=== PATIENT | female | born 1945 | race Caucasian/White ===

== ENCOUNTER → 2018-03-09 | Outpatient (CLI) | payer MEDICARE ==
[~2018-03-09] MED LIST: ACET325 PO; ACET500 PO; ALBU3IS INH; ALBU90I INH; ALBU90OI INH; ALBU90OI61 INH; ALEN70; ALEN70 PO; ALL DAY ALLERGY10 MG PO; AMLO5 PO; ANTIBIOTIC; ASCO500 PO; ASMANEX; AZIT250 PO; AZIT500 PO; B complex; BENADRYL25 MG; BENZ100A PO; CALCA500CH; CALCA500CH PO; CALCAVITD PO; CALCIUM PLUS D; CALCIUM PO; CALCNI; CALCNI PO; CARV25 PO; CELE200; CETI10 PO; CETI5 PO; CHOL10002 PO; CIPR500 PO; CITA20 PO; CLOBET30L TOP; CLON.1 MT; CLON.5; CYAN1000 PO; D3 + K2 Dots 11 EACH PO; DELTASONE20 MG PO; DILT180 PO; DIPH50 PO; DOXA1 PO; DULERA 100 MCG/13 GM INH; EDARBI40 MG PO; ELIQUIS5 MG PO; ENAL20 PO; ESTR.75; Effexor Xr150 MG PO; FENO145 PO; FERR325 PO; FIBER GUMMIES1 EACH PO; FIBER PO; FLONASE ALLERG9.9 ML INH; FLORADIL; FLUT.05NI INH; FOLI1 PO; FORM12IH; FORM12IH IH; FORTICAL; FURO40 MT; Ferrous Sulfat325 M2 PO; Flonase 0.05% N16 GM; HYDACE10B MT; HYDACE5 PO; HYDCHL12.5 PO; HYDHCL25 PO; HYDMOR2 PO; HYDR10 PO; HYDURE500 PO; HYOS.125 SL; Hydralazine HCl10 MG MT; INDA2.5; IRON150C PO; ISOMON30 PO; KRILL OIL 3001 EACH; KRILL OIL 3001 EACH PO; KRILL OIL500 MG PO; LEVSOD50 PO; LORA.5 PO; MEGARED OMEGA-1 EAC1 PO; MELA3; META800 PO; METCAR750; METO10; METO5A; METR500 PO; MOME220I IH; MOMENI; MOMETASONE; MONDOXYNE NL100 MG PO; MONT10T; MONT10T PO; NAPR550 PO; NYST100SU SS; OSEL75CA; OXYACE5T; OXYC10ER PO; OXYC10TA19 PO; PANT20; PANT40 PO; PHILLIPS' COLO1 EACH PO; POTA10T; POTA10T MT; POTA10T PO; POTCHL10ER PO; PRED20 PO; PROBIOTIC COMP1 EACH PO; PROBIOTIC1 EAC1 PO; QVAR7.3 G1 IH; QVAR7.3 G1 INH; SIMV20 PO; SPIR50; STOOL SOFTENER1 EAC1 PO; STOOL SOFTENER50 MG PO; SUCR1 PO; Stool Softener100 MG PO; TIZANIDINE HCL4 MG PO; TRAN4; ULTRA-LIGHT RO1 EACH MC; VENL150ER PO; VENL75; VENL75ER; VITB100 PO; Vitamin D2000 UNIT PO; WARF1; WARF1 PO; WARF2 PO; WARF2.5; WARF2.5 PO; WARF5; ZOLP5 PO; Zanaflex4 M1 MT; Zanaflex4 M1 PO; Zofran Odt4 MG SL; [UNRECOGNIZED DRUG - OTHER]; [UNRECOGNIZED DRUG - OTHER] PO; [UNRECOGNIZED DRUG - REMARK]; [UNRECOGNIZED DRUG - REMARK]; [UNRECOGNIZED DRUG - REMARK]; albuteral; citalopram; enalapril
[2018-03-09 16:08] LABS: BASOPHILS PERCENT AUTO 1 % (0-2); EOSINOPHILS ABSOLUTE AUTO 0.04 K/mm3 (0.00-0.68); EOSINOPHILS PERCENT AUTO 0 % (0-6); Hematocrit 39.8 % (33.0-51.0); Hemoglobin 13.8 g/dL (11.5-16.0); IMMATURE GRAN ABSOLUTE AUTO 0.03 K/mm3 (0.00-0.10); IMMATURE GRAN PERCENT AUTO 0 % (0-1); LYMPHOCYTES ABSOLUTE AUTO 2.55 K/mm3 (0.84-5.20); LYMPHOCYTES PERCENT AUTO 24 % (21-46); MONOCYTES PERCENT AUTO 7 % (4-13); Mean Corpuscular HGB 37.3 pg (26.0-34.0); Mean Corpuscular HGB Conc 34.7 g/dL (31.5-36.5); Mean Corpuscular Volume 108 fL (80-100); Mean Platelet Volume 8.9 fL (9.1-12.4); NEUTROPHILS PERCENT AUTO 67 % (41-73); Platelet Count 456 K/mm3 (150-400); RDW Standard Deviation 55.8 fL (35.1-46.3); White Blood Cell Count 10.82 K/mm3 (4.00-11.30)
[2018-03-09 16:21] LABS: Albumin, Blood 4.3 g/dL (3.4-5.0); Albumin/Globulin Ratio 1.1 (0.8-1.8); Bilirubin, Total 0.5 mg/dL (0.1-1.0); Bun/Creatinine Ratio 14.4 (12.0-20.0); Calcium, Blood 9.7 mg/dL (8.5-10.1); Creatinine, Blood 1.32 mg/dL (0.40-1.00); Globulin, Blood 3.8 g/dL (2.2-4.0); Potassium, Blood 2.9 mmol/L (3.5-5.5); Total Protein, Blood 8.1 g/dL (6.4-8.2)
== END ==
LOC: LAB EV 16:05 → LAB SHORT 16:05
PROVIDERS: Nurse Practitioner
DX: R10.9 Unspecified abdominal pain (principal)
CPT/HCPCS: 80053; 85025

== ENCOUNTER 2018-03-15 10:13 | Inpatient (IN) | payer MEDICARE ==
[~2018-03-15] VITALS: Ht 167.6 cm; Wt 74.4 kg
[2018-03-15] MEDS ORDERED: ASPI81CH PO (10:30)
[2018-03-15] MEDS ORDERED: CLON.1 PO (10:31)
[2018-03-15] MEDS ORDERED: HYOS.125 SL (10:33)
[2018-03-15] MEDS ORDERED: HYDURE500 PO (10:33)
[2018-03-15 10:35] LABS: BASOPHILS ABSOLUTE AUTO 0.13 K/mm3 (0.00-0.23); BASOPHILS PERCENT AUTO 1 % (0-2); EOSINOPHILS ABSOLUTE AUTO 0.06 K/mm3 (0.00-0.68); EOSINOPHILS PERCENT AUTO 1 % (0-6); Hematocrit 39.1 % (33.0-51.0); Hemoglobin 13.3 g/dL (11.5-16.0); IMMATURE GRAN ABSOLUTE AUTO 0.05 K/mm3 (0.00-0.10); IMMATURE GRAN PERCENT AUTO 1 % (0-1); LYMPHOCYTES ABSOLUTE AUTO 1.59 K/mm3 (0.84-5.20); LYMPHOCYTES PERCENT AUTO 16 % (21-46); MONOCYTES ABSOLUTE AUTO 0.72 K/mm3 (0.16-1.47); MONOCYTES PERCENT AUTO 7 % (4-13); Mean Corpuscular HGB 37.2 pg (26.0-34.0); Mean Corpuscular Volume 109 fL (80-100); Mean Platelet Volume 9.9 fL (9.1-12.4); NEUTROPHILS ABSOLUTE AUTO 7.49 K/mm3 (1.96-9.15); NEUTROPHILS PERCENT AUTO 75 % (41-73); Platelet Count 428 K/mm3 (150-400); RDW Coefficient Variation 13.8 % (11.7-14.2); RDW Standard Deviation 56.3 fL (35.1-46.3); Red Blood Cell Count 3.58 M/mm3 (3.80-5.20); White Blood Cell Count 10.04 K/mm3 (4.00-11.30)
[2018-03-15 10:48] LABS: International Normalized Ratio 0.98; Prothrombin Time Results 10.1 Sec (9.7-11.5)
[2018-03-15 10:51] LABS: Troponin I <0.015 ng/mL (0.000-0.040)
[2018-03-15 10:56] LABS: Alanine Aminotransfer (ALT/SGP 21 U/L (12-78); Albumin, Blood 3.9 g/dL (3.4-5.0); Alk Phos 52 U/L (50-136); Anion Gap 8 mmol/L (6-16); Aspartate Aminotrans (AST/SGOT 53 U/L (12-37); Bilirubin, Total 0.7 mg/dL (0.1-1.0); Blood Urea Nitrogen 18 mg/dL (8-24); Bun/Creatinine Ratio 13.8 (12.0-20.0); CO2, Blood 24 mmol/L (21-32); Calcium, Blood 9.2 mg/dL (8.5-10.1); Chloride, Blood 104 mmol/L (98-108); Glomerular Filtration Rate 43 (60-); Glucose, Blood 89 mg/dL (70-99); Potassium, Blood 5.2 mmol/L (3.5-5.5); Sodium, Blood 136 mmol/L (136-145); Total Protein, Blood 7.9 g/dL (6.4-8.2)
[2018-03-15 11:25] LABS: PO2 Arterial 97.4 mmHg (80-100)
[2018-03-15 11:26] LABS: PCO2 Arterial 19.8 mmHg (35-45); pH Blood Arterial 7.64 (7.35-7.45)
[2018-03-15] MEDS ORDERED: [UNRECOGNIZED DRUG - CODE] PO (15:41)
[2018-03-15] MEDS ORDERED: [UNRECOGNIZED DRUG - CODE] PO (15:43)
[2018-03-15 18:24] LABS: Adenovirus F 40/41 Not Detected (NOT DETECT); Astrovirus Not Detected (NOT DETECT); Campylobacter Sp Not Detected (NOT DETECT); Cryptosporidium Not Detected (NOT DETECT); Cyclospora Cayetanensis Not Detected (NOT DETECT); E. Coli O157 Not Detected (NOT DETECT); Entamoeba Histolytica Not Detected (NOT DETECT); Enteroaggregative E. coli-EAEC Not Detected (NOT DETECT); Enteropathogenic E. coli-EPEC Not Detected (NOT DETECT); Enterotoxigenic E. coli-ETEC Not Detected (NOT DETECT); Giardia Lamblia Not Detected (NOT DETECT); Norovirus GI/GII Not Detected (NOT DETECT); Plesiomonas Shigelloides Not Detected (NOT DETECT); Rotavirus A Not Detected (NOT DETECT); Salmonella Sp Not Detected (NOT DETECT); Sapovirus Not Detected (NOT DETECT); Shiga Toxin-prod E. coli-STEC Not Detected (NOT DETECT); Shigella/Enteroin E. coli-EIEC Not Detected (NOT DETECT); Vibrio Cholerae Not Detected (NOT DETECT); Vibrio Sp Not Detected (NOT DETECT); Yersinia Enterocolitica Not Detected (NOT DETECT)
[2018-03-16 09:58] LABS: PCO2 Arterial 28.8 mmHg (35-45); PO2 Arterial 75.5 mmHg (80-100)
[2018-03-17 04:18] LABS: BASOPHILS ABSOLUTE AUTO 0.08 K/mm3 (0.00-0.23); BASOPHILS PERCENT AUTO 1 % (0-2); EOSINOPHILS ABSOLUTE AUTO 0.12 K/mm3 (0.00-0.68); EOSINOPHILS PERCENT AUTO 2 % (0-6); Hematocrit 35.1 % (33.0-51.0); IMMATURE GRAN ABSOLUTE AUTO 0.02 K/mm3 (0.00-0.10); IMMATURE GRAN PERCENT AUTO 0 % (0-1); LYMPHOCYTES PERCENT AUTO 35 % (21-46); MONOCYTES ABSOLUTE AUTO 0.91 K/mm3 (0.16-1.47); MONOCYTES PERCENT AUTO 12 % (4-13); Mean Corpuscular HGB 36.8 pg (26.0-34.0); Mean Corpuscular HGB Conc 34.2 g/dL (31.5-36.5); Mean Corpuscular Volume 108 fL (80-100); Mean Platelet Volume 9.6 fL (9.1-12.4); NEUTROPHILS ABSOLUTE AUTO 3.98 K/mm3 (1.96-9.15); NEUTROPHILS PERCENT AUTO 50 % (41-73); Platelet Count 410 K/mm3 (150-400); RDW Coefficient Variation 13.5 % (11.7-14.2); RDW Standard Deviation 54.1 fL (35.1-46.3); Red Blood Cell Count 3.26 M/mm3 (3.80-5.20); White Blood Cell Count 7.91 K/mm3 (4.00-11.30)
[2018-03-17 04:37] LABS: Albumin, Blood 3.5 g/dL (3.4-5.0); Bilirubin, Total 0.5 mg/dL (0.1-1.0); Bun/Creatinine Ratio 14.9 (12.0-20.0); Calcium, Blood 8.3 mg/dL (8.5-10.1); Creatinine, Blood 1.14 mg/dL (0.40-1.00); Globulin, Blood 3.5 g/dL (2.2-4.0); Potassium, Blood 3.5 mmol/L (3.5-5.5)
[2018-03-17] MEDS ORDERED: POTCHL20ER PO (14:18)
[2018-03-17] MEDS ORDERED: TRAM50 PO (14:19)
[2018-03-17] MEDS ORDERED: Zanaflex4 M1 PO (14:21)
[2018-03-17] MEDS ORDERED: ONDA4ODT MM (14:21)
== END 2018-03-17 15:34 | disposition home or self-care (01) | DRG 292 ==
LOC: ER 10:13 → MEDS 13:39
PROVIDERS: Internal Medicine; Physician Assistant
DX: I13.0 Hypertensive heart and chronic kidney disease with heart failure and stage 1 through stage 4 chronic kidney disease, or unspecified chronic kidney disease (principal); I50.22 Chronic systolic (congestive) heart failure; E87.4 Mixed disorder of acid-base balance; R13.10 Dysphagia, unspecified; I48.91 Unspecified atrial fibrillation; N18.3 Chronic kidney disease, stage 3 (moderate); R07.1 Chest pain on breathing; R11.2 Nausea with vomiting, unspecified; R19.7 Diarrhea, unspecified; D47.3 Essential (hemorrhagic) thrombocythemia; G89.29 Other chronic pain; M54.9 Dorsalgia, unspecified; E03.9 Hypothyroidism, unspecified; Z90.81 Acquired absence of spleen; Z87.891 Personal history of nicotine dependence; Z90.49 Acquired absence of other specified parts of digestive tract; Z88.1 Allergy status to other antibiotic agents; Z88.8 Allergy status to other drugs, medicaments and biological substances; Z79.899 Other long term (current) drug therapy; Z79.82 Long term (current) use of aspirin; Z85.09 Personal history of malignant neoplasm of other digestive organs; Z85.07 Personal history of malignant neoplasm of pancreas; Z98.890 Other specified postprocedural states; Z90.3 Acquired absence of stomach [part of]; Z90.411 Acquired partial absence of pancreas; Z90.722 Acquired absence of ovaries, bilateral; Z86.718 Personal history of other venous thrombosis and embolism; Z86.711 Personal history of pulmonary embolism
CPT/HCPCS: 36415; 36600; 71046; 74176; 78582; 80053; 82803; 83880; 84484; 85025; 85610; 85730; 87507; 93005; 93010; 93306; 94640; 94760; 94762; 99285-25; A9540; A9558; J0360; J1650; J2405

== ENCOUNTER → 2018-12-31 | Outpatient (CLI) | payer OTHER ==
[~2018-12-31] MED LIST changes: +ASPI81CH PO; +ATOR10 PO; +CALCIUM GUMMIE1 EACH PO; +CLON.1 PO; +CLOP75 PO; +COMPAZINE10 MG PO; +FIBER GUMMIES2 GM PO; +FURO20 PO; +HYDR1TAB94 PO; +Isosorbide Mono30 MG PO; +LOSA50 PO; +NEBI10 PO; +NIFE60ER PO; +OMEGA-3 KRILL1 EAC2 PO; +ONDA4ODT MM; +POTCHL20ER PO; +TRAM50 PO; +VITAMIN B12-FO1 EACH PO; +VITAMIN D31000 UNI2 PO; +[UNRECOGNIZED DRUG - CODE] PO; +[UNRECOGNIZED DRUG - CODE] PO
[2018-12-31 16:34] LABS: Anion Gap 8 mmol/L (6-16); Blood Urea Nitrogen 24 mg/dL (8-24); CO2, Blood 27 mmol/L (21-32); Calcium, Blood 9.5 mg/dL (8.5-10.1); Chloride, Blood 103 mmol/L (98-108); Glomerular Filtration Rate 32 (60-); Glucose, Blood 91 mg/dL (70-99); Sodium, Blood 138 mmol/L (136-145)
[2018-12-31 16:37] LABS: Troponin I <0.017 ng/mL (0.000-0.040)
[2018-12-31 16:51] LABS: BASOPHILS ABSOLUTE AUTO 0.11 K/mm3 (0.00-0.23); BASOPHILS PERCENT AUTO 1 % (0-2); EOSINOPHILS ABSOLUTE AUTO 0.11 K/mm3 (0.00-0.68); EOSINOPHILS PERCENT AUTO 1 % (0-6); Hematocrit 34.4 % (33.0-51.0); Hemoglobin 11.6 g/dL (11.5-16.0); IMMATURE GRAN ABSOLUTE AUTO 0.02 K/mm3 (0.00-0.10); IMMATURE GRAN PERCENT AUTO 0 % (0-1); LYMPHOCYTES ABSOLUTE AUTO 2.06 K/mm3 (0.84-5.20); LYMPHOCYTES PERCENT AUTO 27 % (21-46); MONOCYTES ABSOLUTE AUTO 0.77 K/mm3 (0.16-1.47); MONOCYTES PERCENT AUTO 10 % (4-13); Mean Corpuscular HGB 37.1 pg (26.0-34.0); Mean Corpuscular HGB Conc 33.7 g/dL (31.5-36.5); Mean Corpuscular Volume 110 fL (80-100); Mean Platelet Volume 9.4 fL (9.1-12.4); NEUTROPHILS ABSOLUTE AUTO 4.66 K/mm3 (1.96-9.15); NEUTROPHILS PERCENT AUTO 60 % (41-73); Platelet Count 494 K/mm3 (150-400); RDW Coefficient Variation 13.3 % (11.7-14.2); RDW Standard Deviation 54.1 fL (35.1-46.3); Red Blood Cell Count 3.13 M/mm3 (3.80-5.20); White Blood Cell Count 7.73 K/mm3 (4.00-11.30)
== END | disposition home or self-care (01) ==
LOC: LAB EV 16:11 → LAB SHORT 16:11
PROVIDERS: Family Medicine
DX: R42 Dizziness and giddiness (principal)
CPT/HCPCS: 80048; 83880; 84484; 85025

== ENCOUNTER 2019-04-29 08:13 | Day surgery (SDC) | payer OTHER ==
[~2019-04-29] VITALS: Ht 167.6 cm; Wt 77.2 kg
[~2019-04-29 08:13] MED LIST changes: -ATOR10 PO; -CALCIUM GUMMIE1 EACH PO; -CLOP75 PO; -FIBER GUMMIES2 GM PO; -HYDR1TAB94 PO
[2019-04-29] MEDS ORDERED: HYDR1TAB94 PO (09:12)
[2019-04-29] MEDS ORDERED: FIBER GUMMIES2 GM PO (09:14)
[2019-04-29] MEDS ORDERED: CALCIUM GUMMIE1 EACH PO (09:15)
--- NOTE | 2019-04-29 13:00 | NUR ---
Pt recieved from Jeanne Goodwin RN, pt is talking with daughter Shaunna who is at bedside. Pt states she has pain in her abd lower back 01/29. Pt rolled to bed sheehan voided cleaned, right groin site wnl. Will request pain med from Dr. Willams for pain.
[2019-04-29] MEDS ORDERED: ATOR10 PO ×2 (13:52→13:54)
[2019-04-29] MEDS ORDERED: CLOP75 PO ×2 (13:52→13:54)
--- NOTE | 2019-04-29 13:55 | NUR ---
Pt medicated with rx for abd pain and back pain. Pain at a now 11/29. Pt daughter at bedside. hob up pr previously voided > 300 ml
--- NOTE | 2019-04-29 14:16 | NUR ---
Pt HOB increased post iv meds pain decreased to 5/10, Pt eating raza well. Groin site wnl. Pt will be given Plavix 75 mg now post lunch please see manager cath lab medication sheet.
--- NOTE | 2019-04-29 15:26 | NUR ---
Pt home via w/c to private car. Pt stable. RX call ed to [facility]. [facility]. 90 quanity refill one year.
--- NOTE | 2019-04-29 15:53 | NUR ---
DISCHARGE PT REMAINED A&OX3 AND DENIED ANY PAIN AT THIS TIME. IV DC'D WITH CANULA IN TACT. DISCHARGE PAPERWORK GONE OVER WITH PT AND DAUGHTER. PT AND DAUGHTER VERBALLY STATED THE UNDERSTADING OF THE DISCHARGE EDUCATION AND DENIED ANY QUESTIONS AT THIS TIME. PT ABLE TO DRESS SELL WITH ASSISTANCE FROM DAUGHTER. PT WHEELED OUT BY PAT Valladares RN.
== END 2019-04-29 15:30 | disposition home or self-care (01) ==
LOC: MHTC 08:13
DX: I70.1 Atherosclerosis of renal artery (principal); I10 Essential (primary) hypertension; Z79.899 Other long term (current) drug therapy
CPT/HCPCS: 36252; 37236; 85347; 99152; 99153; C1725; C1760; C1769; C1874; C1887; C1894; J1644; J3010; J7030; Q9967

== ENCOUNTER → 2019-10-08 | Outpatient (CLI) | payer OTHER ==
[~2019-10-08] MED LIST changes: +ATOR10 PO; +CALCIUM GUMMIE1 EACH PO; +CLOP75 PO; +CYCL10 PO; +Catapres0.2 MG; +FENOFIBRATE145 MG; +FIBER GUMMIES2 GM PO; +HYDR1TAB94 PO; +PROC5 PO
== END | disposition home or self-care (01) ==
LOC: PLD 12:22 → LAB SHORT 12:22
DX: C44.329 Squamous cell carcinoma of skin of other parts of face (principal); D36.13 Benign neoplasm of peripheral nerves and autonomic nervous system of lower limb, including hip
CPT/HCPCS: 88305

== ENCOUNTER → 2020-03-15 | Outpatient (CLI) | payer OTHER ==
[2020-03-15 15:58] LABS: Creatinine Urine 47.5 mg/dL (27.00-270.00); Microalbumin, Urine Quant. 6.1 mg/L (0.000-20.000); Protein, Urine Quantitative 5.2 mg/dL (0.0-11.9)
== END | disposition home or self-care (01) ==
LOC: LAB 12:54 → LAB SHORT 12:54 → LAB FUT 03-04 13:05
PROVIDERS: Internal Medicine Nephrology
DX: N18.3 Chronic kidney disease, stage 3 (moderate) (principal); D63.1 Anemia in chronic kidney disease; N25.81 Secondary hyperparathyroidism of renal origin; E55.9 Vitamin D deficiency, unspecified; E78.00 Pure hypercholesterolemia, unspecified; R76.9 Abnormal immunological finding in serum, unspecified; R94.5 Abnormal results of liver function studies; R94.6 Abnormal results of thyroid function studies
CPT/HCPCS: 81050; 82043; 82570; 84156

== ENCOUNTER → 2021-09-06 | Outpatient (CLI) | payer MEDICARE | END | disposition home or self-care (01) | LOC: LAB SHORT 13:15 | DX: R30.9 Painful micturition, unspecified (principal) | CPT/HCPCS: 87077; 87086; 87186 ==

== ENCOUNTER → 2023-06-23 | Outpatient (CLI) | payer MEDICARE ==
[~2023-06-23] MED LIST changes: +SULTRIDS PO
[2023-06-23 11:35] LABS: BASOPHILS ABSOLUTE AUTO 0.05 K/mm3 (0.00-0.23); BASOPHILS PERCENT AUTO 1 % (0-2); EOSINOPHILS ABSOLUTE AUTO 0.13 K/mm3 (0.00-0.68); EOSINOPHILS PERCENT AUTO 1 % (0-6); Hematocrit 37.9 % (33.0-51.0); Hemoglobin 12.2 g/dL (11.5-16.0); IMMATURE GRAN ABSOLUTE AUTO 0.05 K/mm3 (0.00-0.10); IMMATURE GRAN PERCENT AUTO 1 % (0-1); LYMPHOCYTES ABSOLUTE AUTO 1.45 K/mm3 (0.84-5.20); LYMPHOCYTES PERCENT AUTO 14 % (21-46); MONOCYTES ABSOLUTE AUTO 0.84 K/mm3 (0.16-1.47); MONOCYTES PERCENT AUTO 8 % (4-13); Mean Corpuscular HGB 30.9 pg (26.0-34.0); Mean Corpuscular HGB Conc 32.2 g/dL (31.5-36.5); Mean Corpuscular Volume 96 fL (80-100); Mean Platelet Volume 9.3 fL (9.1-12.4); NEUTROPHILS ABSOLUTE AUTO 7.63 K/mm3 (1.96-9.15); NEUTROPHILS PERCENT AUTO 75 % (41-73); NRBC ABSOLUTE 0.07 K/mm3 (0.00-0.02); NRBC Auto 0.7 /100 WBC (0.0-0.2); Platelet Count 698 K/mm3 (150-400); RDW Coefficient Variation 19.9 % (11.7-14.2); Red Blood Cell Count 3.95 M/mm3 (3.80-5.20); White Blood Cell Count 10.15 K/mm3 (4.00-11.30)
[2023-06-23 11:39] LABS: Bun/Creatinine Ratio 16.5 (12.0-20.0); Calcium, Blood 8.8 mg/dL (8.5-10.1); Creatinine, Blood 1.27 mg/dL (0.40-1.00); Potassium, Blood 3.5 mmol/L (3.5-5.5)
== END | disposition home or self-care (01) ==
LOC: LAB SHORT 11:30 → LAB 11:30
PROVIDERS: Physician Assistant Surgical
DX: M62.81 Muscle weakness (generalized) (principal)
CPT/HCPCS: 80048; 85025